=== PATIENT | male | born 1990 | race Caucasian/White ===

== ENCOUNTER 2016-12-11 22:28 | Emergency (ER) | payer MEDICAID ==
[~2016-12-11 22:28] MED LIST: AMOXIL500 MG PO; FLEXERIL10 MG PO; FLOMAX 0.4MG C0.4 MG PO; KEFLEX 500MG.500 MG PO; PERCOCET 5/3251 EACH PO; PHENERGAN 25MG.25 M1 PO; TAMIFLU 75MG CA75 MG PO
[2016-12-11 22:58] LABS: STREP SCREEN (RAPID) NEGATIVE
--- OUTSIDE RECORDS SUMMARY | 2016-12-18 14:33 | External Medical Summary Rpt ---
Author Author , WILBER MERINO Address Unknown Phone [email or web address] Care Team Providers Care Vision Specialist Name Role Phone Melodie Castaneda MD, Unavailable Unavailable Melodie Castaneda MD Purpose Continuity of Care Document - 11-14-2012 through 2016 Problems Code Diagnosis DOS Provider Status 305.1 305.1 11-14-2012 [place] TOBACCO USE [facility] 891.1 891.1 OPEN 11-14-2012 [facility] KNEE/LEG-CO [facility] MPL E920.8 E920.8 11-14-2012 [place] ACC-CUTTING [facility] NEC V90.81 V90.81 11-14-2012 [facility] FRAGMENTS Allergies, Adverse Reactions, Alerts Type Allergy to substance Adverse Reaction to Substance Substance Reaction Severity INGREDIENT: NO KNOWN Unknown Unknown - NO KNOWN DRUG ALLERGY Medications Na ND Rx Da Fi Fi Am Da Di Ph RX Ph St me C No te ll ll ou ys ag ar # ys at rm s nt no ma ic us Or Da si cy ia de te s n re d LI 63 06 0 No DO 32 -1 CA 30 5- Lo IN 20 20 ng E 11 13 er HC 0 L Ac 1% ti ve AL LI 00 06 0 No DO 40 -1 CA 94 5- Lo IN 27 20 ng E 90 13 er HC 2 L Ac 1% ti ve AL CE 62 06 0 No PH 75 -1 AL 60 5- Lo EX 29 20 ng IN 48 13 er 8 50 Ac 0 ti MG ve CA PS UL E AC 51 06 0 No ET 07 -1 AM 90 5- Lo IN 16 20 ng OP 19 13 er HE 9H N Ac W/ ti CO ve DE IN E #3 TA K Vital Signs 11-14-2012 21:34 Name Value Interpretat Reference Comment ion Range Body 98.3 [degF] Temperature BP 59 mm[Hg] Diastolic BP Systolic 140 mm[Hg] Heart 88 /min Rate/Pulse O2% 98 % Respiratory 16 /min Rate 11-14-2012 21:31 Name Value Interpretat Reference Comment ion Range Body 98.3 [degF] Temperature BP 59 mm[Hg] Diastolic BP Systolic 140 mm[Hg] Heart 88 /min Rate/Pulse O2% 98 % Respiratory 16 /min Rate Results Labs Lab Lab Date Result Refere Interp Status Commen Order Detail nces retati t Range on Influenza virus A+B Ag [Presence] in Unspecified specimen (12-11-2016 22:35) Influen NOT NOT complet za 017 DETECTE DETECTD ed virus A 22:35 D Ag [Presen ce] in Unspeci fied specime n Influen NOT NOT complet za 017 DETECTE DETECTD ed virus B 22:35 D Ag [Presen ce] in Unspeci fied specime n Streptococcus pyogenes Ag [Presence] in Unspecified specimen (12-11-2016 22:35) Strepto NEGATIV complet coccus 017 E ed pyogene 22:35 s Ag [Presen ce] in Unspeci fied specime n Procedures Procedure DOS Code Location Performer Comment CLOSURE 86.59 [facility] Tonya MIKE SUBC[facility] OUS NEC Encounters Encounter Start End Date Code Location Performer Type Date Emergency ELLIOT Castaneda MD (ER) 3 20:30 3 21:34 [facility]
--- OUTSIDE RECORDS SUMMARY | 2016-12-18 14:33 | External Medical Summary Rpt ---
Author Author , WILBER MERINO Address Unknown Phone [email or web address] Care Team Providers Care Comber Operator Name Role Phone Melodie Castaneda MD, Unavailable Unavailable Melodie Castaneda MD Purpose Continuity of Care Document - 11-14-2012 through 2016 Problems Code Diagnosis DOS Provider Status 305.1 305.1 11-14-2012 [place] TOBACCO USE [facility] 891.1 891.1 OPEN 11-14-2012 [facility] KNEE/LEG-CO [facility] MPL E920.8 E920.8 11-14-2012 [place] ACC-CUTTING [facility] NEC V90.81 V90.81 11-14-2012 [facility] FRAGMENTS Allergies, Adverse Reactions, Alerts Type [...] DOS Code Location Performer Comment CLOSURE 86.59 [facility] SUBCUTANE OUS NEC Encounters Encounter Start End Date Code Location Performer Type Date Emergency ELLIOT Castaneda MD (ER) 3 20:30 3 21:34 [facility]
--- OUTSIDE RECORDS SUMMARY | 2016-12-18 14:34 | External Medical Summary Rpt ---
Author Author , WILBER MERINO Address Unknown Phone [email or web address] Immunization Name Date Rout CVX Reac Dose Comm Prov Is Faci e tion ent ider Refu lity Give sed n Td 10-1 9 999 Hist H149 No H149 (kaylen 0-20 oric lt), 03 al Info adso rmat rbed ion - Sour ce Unsp ecif ied Hep 02- 8 999 Hist H149 No H149 B, 1-20 oric ped/ 02 al adol Info rmat ion - Sour ce Unsp ecif ied Hep 08-3 8 999 Hist H149 No H149 B, 1-20 oric ped/ 01 al adol Info rmat ion - Sour ce Unsp ecif ied Hep 07-3 8 999 Hist H149 No H149 B, -20 oric ped/ 01 al adol Info rmat ion - Sour ce Unsp ecif ied
--- OUTSIDE RECORDS SUMMARY | 2016-12-18 14:34 | External Medical Summary Rpt ---
Demographics Preferred Language Sami Marital Status Unknown Rastafari Affiliation Unknown Race Unknown Ethnic Group Unknown Author Author AUSTEN Address Unknown Phone [email or web address] Purpose Continuity of Care Document - through 2016
--- OUTSIDE RECORDS SUMMARY | 2016-12-18 14:34 | External Medical Summary Rpt ---
Author Author [employer], [employer] Organization [employer] Address Unknown Phone Unavailable Results Influenza virus A+B Ag [Presence] in Unspecified specimen Observa Value Referen Units Interpr Notes Date tion ce etation Range Influen NOT NOT No No No Dec 11 za DETECTE DETECTD informa informa informa 2017 virus A D tion in tion in tion in 10:35 Ag source source source PM [Presen data data data ce] in Unspeci fied specime n Influen NOT NOT No No No Dec 11 za DETECTE DETECTD informa informa informa 2017 virus B D tion in tion in tion in 10:35 Ag source source source PM [Presen data data data ce] in Unspeci fied specime n Streptococcus pyogenes Ag [Presence] in Unspecified specimen Observa Value Referen Units Interpr Notes Date tion ce etation Range Strepto NEGATIV No No No No Dec 11 coccus E informa informa informa informa 2017 pyogene tion in tion in tion in tion in 10:35 s Ag source source source source PM [Presen data data data data ce] in Unspeci fied specime n
--- OUTSIDE RECORDS SUMMARY | 2016-12-18 14:34 | External Medical Summary Rpt ---
Demographics Preferred Language Maltese Marital Status Unknown Hindu Affiliation Unknown Race Unknown Ethnic Group Unknown Author Author AUSTEN Address Unknown Phone [email or web address] Purpose Continuity of Care Document - through 2016
--- OUTSIDE RECORDS SUMMARY | 2016-12-18 14:34 | External Medical Summary Rpt ---
Author Author , WILBER MERINO Address Unknown Phone [email or web address] Immunization Name Date Rout CVX Reac Dose [...]
== END 2016-12-11 22:30 | disposition left against medical advice (07) ==
LOC: ER 22:28
PROVIDERS: Emergency Medicine
DX: Z53.29 Procedure and treatment not carried out because of patient's decision for other reasons (principal)

== ENCOUNTER → 2017-03-18 | Outpatient (CLI) | payer MEDICAID ==
[2017-03-18 13:04] LABS: BUN 16 mg/dL (7-18)
[2017-03-18 13:06] LABS: GFR (ESTIMATED) 90 ML/MIN (>60)
[2017-03-18 13:18] LABS: HEMOGLOBIN 15.2 g/dL (14.1-18.0); LYMPH # 2.7 K/mm3 (0.7-4.5); LYMPH % 24.3 % (10-50)
== END ==
LOC: LAB 12:27
PROVIDERS: Nurse Practitioner Family
DX: R53.83 Other fatigue (principal); E55.9 Vitamin D deficiency, unspecified